=== PATIENT | male | born 1990 ===

== ENCOUNTER 2020-11-25 17:09 | Emergency (ER) | payer MEDICAID, OTHER ==
--- NOTE | 2020-11-25 18:02 | EDM.PDOC ---
<Otilio Perez - Last Filed: 11/25/20 18:00> ED HPI GENERAL MEDICAL PROBLEM - General Chief Complaint: Gastrointestinal Problem Stated Complaint: STOMACH PAIN Time Seen by Provider: 11/25/20 17:12 Source of Information: Reports: Patient History Limitations: Reports: No Limitations - History of Present Illness INITIAL COMMENTS - FREE TEXT/NARRATIVE: Patient is a 30-year-old male who presents today for diarrhea for the past month. Patient states that he had a stomach virus last month having his entire family that recover but since that time has been having watery diarrhea. Patient is feeling nauseous but able to tolerate p.o. Patient denies any abdominal pain but does have some body aches and chills but no documented fevers. Patient also remembers some productive cough and sinus drainage as well as concerned about. - Related Data Allergies Allergy/AdvReac Type Severity Reaction Status Date / Time No Known Allergies Allergy Verified 11/25/20 17:46 Home Meds: Home Meds Azithromycin 250 mg PO DAILY #6 tablet 11/25/20 [Rx] Past Medical History Musculoskeletal History: Reports: None - Past Surgical History Musculoskeletal Surgical History: Reports: Shoulder Surgery, Other (See Below) Other Musculoskeletal Surgeries/Procedures:: L shoulder Social & Family History - Family History Family Medical History: No Pertinent Family History ED ROS GENERAL - Review of Systems Review Of Systems: See Below Constitutional: Reports: No Symptoms HEENT: Reports: No Symptoms Respiratory: Reports: No Symptoms Cardiovascular: Reports: No Symptoms Endocrine: Reports: No Symptoms GI/Abdominal: Reports: Diarrhea : Reports: No Symptoms Musculoskeletal: Reports: No Symptoms Skin: Reports: No Symptoms Neurological: Reports: No Symptoms Psychiatric: Reports: No Symptoms Hematologic/Lymphatic: Reports: No Symptoms Immunologic: Reports: No Symptoms ED EXAM, GI/ABD - Physical Exam Exam: See Below Exam Limited By: No Limitations General Appearance: Alert, No Apparent Distress Respiratory/Chest: No Respiratory Distress, Lungs Clear, Normal Breath Sounds Cardiovascular: Normal Peripheral Pulses, Regular Rate, Rhythm GI/Abdominal Exam: Normal Bowel Sounds, Soft, Non-Tender Neurological: Alert, Oriented Departure - Departure Disposition: Home, Self-Care 01 Clinical Impression: Diarrhea, Upper respiratory infection, Pneumonia due to COVID-19 virus - Discharge Information Prescriptions: Azithromycin 250 mg PO DAILY #6 tablet Instructions: COVID-19 Frequently Asked Questions, COVID-19: What Your Test Results Mean - CDC, COVID-19: How to Protect Yourself and Others - CDC, COVID- 19, Diarrhea, Adult Referrals: Albina Alvarado NP [Primary Care Provider] - Forms: ED Department Discharge Additional Instructions: [facility] - [facility] [address] [place] [address] [facility] [address] [place] [id number] The following information is given to patients seen in the emergency department who are being discharged to home. This information is to outline your options for follow-up care. We provide all patients seen in our emergency department with a follow-up referral. The need for follow-up, as well as the timing and circumstances, are variable depending upon the specifics of your emergency department visit. If you don't have a primary care physician on staff, we will provide you with a referral. We always advise you to contact your personal physician following an emergency department visit to inform them of the circumstance of the visit and for follow-up with them and/or the need for any referrals to a consulting specialist. The emergency department will also refer you to a specialist when appropriate. This referral assures that you have the opportunity for follow-up care with a specialist. All of these measure are taken in an effort to provide you with optimal care, which includes your follow-up. Under all circumstances we always encourage you to contact your private ysician who remains a resource for coordinating your care. When calling for follow-up care, please make the office aware that this follow-up is from your recent emergency room visit. If for any reason you are refused follow-up, please contact the [facility] Emergency Department at and asked to speak to the emergency department charge nurse. Sepsis Event Note (ED) - Evaluation Sepsis Screening Result: No Definite Risk - Assessment/Plan Plan: Patient is a 30-year-old male presents today for diarrhea for the past month. Patient has no abdominal tenderness. Patient also concerned about a sinus infection patient has no tenderness over sinuses symptoms been less than a week. Was likely viral. We will send labs stool culture and reassess patient. <Ced Valdes - Last Filed: 11/25/20 21:38> Course - Vital Signs Text/Narrative:: 1935 hrs. I went back and reviewed the patient's history. He was turned over to me by Dr. Perez at the end of his shift. The patient's stool sample has been sent to the lab now but results pending. The culture will not come back today. The patient's had more than 6 stools a day since the end of September. Patient has recent upper respiratory infection symptoms over the last 2 or 3 days but those were not present during most of this time. 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 Electrolytes do not reveal any severe danger of dehydration or renal failure. Because of the sick stools a day for more than a month I will put the patient on antibiotics. I cautioned the patient that efforts to slow the diarrhea with more aggressive agents other than Imodium may prolong the course and since he has electrolytes that are good we will probably just add an antibiotic and have him continue his efforts to do fluid replacement orally. 2021 hrs. the radiologist reports patchy infiltrates diffusely and I agree. This raises the issue that this constellation of symptoms may be related to COVID-19. Swabs will be ordered and this will delay the patient's disposition. If he has atypical pneumonia he will be sent home on the same medicine I was getting use for the enteritis. That would be azithromycin. Last Recorded V/S: Last Vital Signs Temp 36.8 C 11/25/20 17:21 Pulse 92 11/25/20 19:32 Resp 18 11/25/20 19:32 BP 127/69 11/25/20 19:32 Pulse Ox 98 11/25/20 19:32 - Orders/Labs/Meds Orders: Active Orders 24 hr Category Date Time Status STOOL CULTURE/SHIGA TOXIN [MREF] Stat Lab 11/25/20 19:00 Received Labs: Laboratory Tests 11/25/20 11/25/20 11/25/20 Range/Units 17:47 17:47 20:35 WBC 4.60 (4.0-11.0) K/uL RBC 4.96 (4.50-5.90) M/uL Hgb 16.0 (13.0-17.0) g/dL Hct 45.6 (38.0-50.0) % MCV 91.9 (80.0-98.0) fL MCH 32.3 H (27.0-32.0) pg MCHC 35.1 (31.0-37.0) g/dL RDW Std Deviation 42.6 (28.0-62.0) fl RDW Coeff of Timothy 13 (11.0-15.0) % Plt Count 166 (150-400) K/uL MPV 10.00 (7.40-12.00) fL Neut % (Auto) 68.9 (48.0-80.0) % Lymph % (Auto) 23.3 (16.0-40.0) % Yancey % (Auto) 7.8 (0.0-15.0) % Eos % (Auto) 0.0 (0.0-7.0) % Baso % (Auto) 0.0 (0.0-1.5) % Neut # (Auto) 3.2 (1.4-5.7) K/uL Lymph # (Auto) 1.1 (0.6-2.4) K/uL Yancey # (Auto) 0.4 (0.0-0.8) K/uL Eos # (Auto) 0.0 (0.0-0.7) K/uL Baso # (Auto) 0.0 (0.0-0.1) K/uL Nucleated RBC % 0.0 /100WBC Nucleated RBCs # 0 K/uL Sodium 138 (136-148) mmol/L Potassium 3.9 (3.5-5.1) mmol/L Chloride 99 (98-107) mmol/L Carbon Dioxide 28.3 (21.0-32.0) mmol/L BUN 12 (7.0-18.0) mg/dL Creatinine 1.3 (0.8-1.3) mg/dL Est Cr Clr Drug Dosing 83.09 mL/min Estimated GFR (MDRD) > 60.0 ml/min Glucose 107 H (74-106) mg/dL Calcium 8.3 L (8.5-10.1) mg/dL Total Bilirubin 0.5 (0.2-1.0) mg/dL AST 27 (15-37) IU/L ALT 45 (14-63) IU/L Alkaline Phosphatase 78 (46-116) U/L Total Protein 8.1 (6.4-8.2) g/dL Albumin 4.0 (3.4-5.0) g/dL Globulin 4.1 H (2.6-4.0) g/dL Albumin/Globulin Ratio 1.0 (0.9-1.6) Influenza Type A RNA NEGATIVE (NEGATIVE) Influenza Type B RNA NEGATIVE (NEGATIVE) SARS-CoV-2 RNA (VALERY) POSITIVE H (NEGATIVE) Meds: Medications Discontinued Medications Generic Name Dose Route Start Last Admin Trade Name Freq PRN Reason Stop Dose Admin Sodium Chloride 1,000 mls @ 999 mls/hr 11/25/20 18:11 11/25/20 18:16 Normal Saline IV 11/25/20 19:11 999 mls/hr .BOLUS ONE Administration Departure - Departure Time of Disposition: 21:36 Condition: Good Sepsis Event Note (ED) - Focused Exam Vital Signs: Vital Signs Temp Pulse Resp BP Pulse Ox 11/25/20 19:32 92 18 127/69 98 11/25/20 17:21 36.8 C 103 H 17 125/78 97
[2020-11-25] MEDS ORDERED: Sodium Chloride 0.9% 1,000 ML IV ONE (18:11)
[2020-11-25 18:16] LABS: BLOOD UREA NITROGEN,BUN 12 mg/dL (7.0-18.0); CARBON DIOXIDE,CO2 28.3 mmol/L (21.0-32.0); CHLORIDE,CL 99 mmol/L (98-107); GLUCOSE RANDOM 107 mg/dL (74-106); POTASSIUM,K 3.9 mmol/L (3.5-5.1); SODIUM,NA 138 mmol/L (136-148)
--- NOTE | 2020-11-25 20:02 | CR ---
INDICATION: Productive cough TECHNIQUE: Chest 2 views. COMPARISON: None FINDINGS: Normal cardiomediastinal silhouette. Faint patchy infiltrates throughout the lungs. No effusion or pneumothorax. Osseous structures intact. IMPRESSION: Patchy infiltrates throughout the lungs concerning for pneumonia. Dictated by Santa Nichols MD @ 11/25/2020 8:01:[address] Santa Nichols @ Nov 25 2020 8:01PM
[2020-11-25 21:21] LABS: CORONAVIRUS COVID-19 NAA POSITIVE (NEGATIVE); INFLUENZA A NAA NEGATIVE (NEGATIVE); INFLUENZA B NAA NEGATIVE (NEGATIVE)
== END 2020-11-25 21:47 | disposition home or self-care (01) ==
LOC: MERGE 17:09 → MW.ED 17:09
DX: U07.1 COVID-19 (principal); J12.82 Pneumonia due to coronavirus disease 2019; R19.7 Diarrhea, unspecified; J06.9 Acute upper respiratory infection, unspecified
CPT/HCPCS: 0240U; 36415; 71046; 80053; 85025; 87045; 87046; 87324; 87449; 87899; 99284; J7030